=== PATIENT | female | born 1985 | race Caucasian/White ===

== ENCOUNTER → 2016-12-26 | Outpatient (CLI) | payer BC ==
[~2016-12-26] MED LIST: NS 100 ML IV 100 ML IV ONE
[2016-12-26 16:09] LABS: CREATININE 0.72 mg/dL (0.55-1.02)
--- NOTE | 2016-12-26 17:04 | CT ---
HISTORY: Right upper/lower quadrant pain. Study: CT abdomen and pelvis with contrast Comparison: None. Technique: Multiple axial images of the abdomen and pelvis were obtained from the lung bases to the pubic symph ysis after the administration of IV contrast. Dose reduction techniques including Automated Exposur e Control (AEC) and adjustment of mA and kV were utilized. Findings: The visualized portions of the lung bases are unremarkable. The liver, spleen, pancreas, kidneys, a nd adrenal glands are unremarkable in their CT appearance. The gallbladder is unremarkable in its CT appearance. No significant mesenteric lymphadenopathy or stranding can be observed. No pathologic free fluid or free air is seen within the abdomen. The visualized large and small bowel appear nor mal. The appendix appears normal with air and contrast. No secondary signs to suggest appendicitis. There is a tampon within the vagina. Trace physiologic free fluid is seen within the pelvis. The ut erus and ovaries otherwise appear normal. The urinary bladder is grossly unremarkable. The bony str uctures are grossly intact. IMPRESSION: No CT evidence to suggest acute abdominal/pelvic pathology. Reported By:
== END | disposition home or self-care (01) ==
LOC: RAD 15:26
PROVIDERS: ATTEND Nurse Practitioner Family
DX: R10.11 Right upper quadrant pain (principal); R10.31 Right lower quadrant pain; R11.2 Nausea with vomiting, unspecified
CPT/HCPCS: 36415; 74177; 82150; 82565; 84520; A4222